=== PATIENT | male | born 1970 | race Caucasian/White ===

== ENCOUNTER → 2023-06-01 11:49 | Outpatient (CLI) | payer OTHER, MEDICAID, SELFPAY ==
--- NOTE | 2023-06-01 11:52 | DI.RAD.S_ITS ---
PROCEDURE: XR KNEE LT 3V INDICATIONS: L knee pain TECHNIQUE: 3 views of the knee were acquired. COMPARISON: None. FINDINGS: Bones: No fractures or dislocations. Mild joint space narrowing. Tricompartmental osteophytosis. No suspicious bony lesions. Soft tissues: Trace joint effusion. No suspicious soft tissue calcifications. IMPRESSION: Moderate left knee DJD. Dictated by: Connor Pyle M.D. on 06/01/2023 at 16:42 Approved by: Connor Pyle M.D. on 06/01/2023 at 16:43
== END ==
PROVIDERS: Family Provider Family Medicine; PCP Family Medicine; Referring Provider Family Medicine; Visit Provider Family Medicine
DX: M25.562 Pain in left knee (principal); M17.12 Unilateral primary osteoarthritis, left knee
CPT/HCPCS: 73562

== ENCOUNTER 2023-06-19 09:00 | Outpatient (RCR) | payer OTHER, MEDICAID, SELFPAY ==
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
--- NOTE | 2023-05-01 09:13 | PT-OP ANOTE ---
NO SHOW- PT called and spoke to pt at 0915 to as pt did not show up to appt. Pt reports that he thought the appt was Monday at 0900. PT confirmed it was today at 0900 and then reminded pt of next appt on 05/02 at 0900. Pt states he will be there.
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
== END 2023-06-20 13:47 | disposition home or self-care (01) ==
LOC: PHYS 09:00
PROVIDERS: Family Provider Family Medicine; PCP Family Medicine; Referring Provider Family Medicine; Visit Provider Family Medicine
DX: M54.9 Dorsalgia, unspecified (principal); G89.29 Other chronic pain; M16.10 Unilateral primary osteoarthritis, unspecified hip; R53.1 Weakness; R27.8 Other lack of coordination
CPT/HCPCS: 97110; 97140; 97161; 97535

== ENCOUNTER → 2023-06-20 08:41 | Outpatient (CLI) | payer OTHER, MEDICAID, SELFPAY ==
--- NOTE | 2023-06-20 08:42 | DI.MRI.S_ITS ---
PROCEDURE: MR HIP LT WO CON INDICATIONS: Left knee pain Decreased range of motion of left k TECHNIQUE: Noncontrast coronal T1 spin echo and STIR through the bony pelvis. Coronal and axial T2 fast spin echo with fat saturation, sagittal T1 spin echo, and oblique axial T2 fast spin echo with fat saturation through the hip. COMPARISON: None. FINDINGS: Image quality: Excellent. Bones and joints: [id number] bilateral hip joint osteoarthritic changes are seen with superior joint space narrowing and subchondral sclerosis slightly worse on the left side. There is no marrow edema. No intraosseous lesions or fractures. No avascular necrosis of the femoral heads. The visualized lower lumbar spine appears normally aligned. Tendons and ligaments: Distal left gluteus medius and minimus tendinosis is seen. The nearby proximal iliotibial band also appears intact. The iliopsoas tendon appears intact, without adjacent bursal fluid collections or evidence for impingement syndrome. Mild tendinosis involving left hamstring tendon origins at ischial tuberosity is also seen. Labrum and cartilage: Thinning of articulating cartilage over left femoral head is seen. There is T2 hyperintense signal and fraying of superior anterior labrum at 12-1 o'clock position suggestive of superior anterior labral tear. The alpha angle of the femur is within normal limits at less than 55 degrees. Soft tissues: Visualized muscles demonstrate normal bulk and internal signal. Quadratus femoris muscle demonstrates no internal edema to suggest ischiofemoral impingement. The proximal sciatic neurovascular bundle appears normal adjacent to the hamstring tendons. No free pelvic fluid. Bladder wall thickness is normal. Genitourinary structures and bowel loops appear normal where visualized. IMPRESSION: 1. Finding is suggestive of superior anterior left hip labral tear at 12 to 1 o'clock position. 2. Mild to moderate bilateral hip joint osteoarthritis slightly worse on the left side. No fracture or dislocation. No evidence of avascular necrosis. 3. Distal left gluteus medius and minimus tendinosis. Mild tendinosis involving left hamstring tendon origins at ischial tuberosity. No other muscle or tendon signal abnormalities. Dictated by: Mark Dillard M.D. on 06/20/2023 at 12:52 Approved by: Mark Dillard M.D. on 06/20/2023 at 12:58
== END ==
PROVIDERS: Family Provider Family Medicine; PCP Family Medicine; Referring Provider Family Medicine; Visit Provider Family Medicine
DX: M16.0 Bilateral primary osteoarthritis of hip (principal); M25.562 Pain in left knee; M25.662 Stiffness of left knee, not elsewhere classified
CPT/HCPCS: 73721

== ENCOUNTER → 2023-07-10 16:22 | Outpatient (CLI) | payer OTHER, MEDICAID, SELFPAY ==
--- NOTE | 2023-07-10 16:23 | DI.MRI.S_ITS ---
PROCEDURE: MR KNEE LT WO CON INDICATIONS: Pain in left knee TECHNIQUE: Noncontrast sagittal PD fast spin echo and T2 fast spin echo with fat saturation, sagittal 3-D FLASH with fat saturation; coronal T1 spin echo and PD fast spin echo with fat saturation, and axial PD fast spin echo with fat saturation through the knee. COMPARISON: None. FINDINGS: Image quality: Excellent. Menisci: The medial meniscus is intact. Truncated appearance involving body and posterior horn of lateral meniscus is seen suggestive of prior partial meniscectomy. No evidence of recurrent tear is seen in lateral meniscal remanent. Cruciate ligaments: The anterior and posterior cruciate ligaments appear intact. Medial structures: The medial collateral ligament appears mildly thickened. Visualized portions of the pes anserinus tendons appear normal. No abnormal bursal fluid. Lateral structures: The lateral collateral ligament, long and short heads of the biceps femoris tendon appear intact. The popliteus tendon appears normal. Iliotibial band appears normal. Anterior structures: Distal quadriceps tendinosis at its superior patellar insertion is seen. The patellar tendon is intact. Patellar alignment is normal. No femoral trochlear dysplasia or ventral trochlear prominence. No edema in the infrapatellar fat pad. Bones and cartilage: No bone marrow contusions or fractures. Juls-ja-gkavcyde tricompartmental osteoarthritis and chondromalacia is seen most notably in lateral femoral tibial compartment. Joint space: There is small to moderate knee joint fluid. There is a tiny popliteal cyst. Normal appearing synovial plicae are incidentally noted. IMPRESSION: 1. Prior partial lateral meniscectomy. No evidence of recurrent tear is seen in lateral meniscal remanent. The medial meniscus is intact. 2. The cruciate ligaments are intact. 3. Low-grade MCL sprain. 4. Distal quadriceps tendinosis. 5. Rtps-gu-bltbtufb tricompartmental osteoarthritis and chondromalacia more notably in lateral femoral tibial compartment. No fracture or dislocation. Small to moderate joint effusion and a small popliteal cyst. No loose bodies. Dictated by: Mark Dillard M.D. on 07/10/2023 at 22:15 Approved by: Mark Dillard M.D. on 07/10/2023 at 22:18
== END ==
PROVIDERS: Family Provider Family Medicine; PCP Family Medicine; Referring Provider Family Medicine; Visit Provider Family Medicine
DX: M17.12 Unilateral primary osteoarthritis, left knee (principal); S83.412A Sprain of medial collateral ligament of left knee, initial encounter; M94.262 Chondromalacia, left knee; M25.562 Pain in left knee; M25.662 Stiffness of left knee, not elsewhere classified
CPT/HCPCS: 73721

== ENCOUNTER 2024-02-29 09:45 | Outpatient (RCR) | payer OTHER, MEDICAID, SELFPAY ==
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
== END 2024-03-07 09:46 | disposition home or self-care (01) ==
LOC: PHYS 09:45
PROVIDERS: Family Provider Family Medicine; PCP Family Medicine; Referring Provider Family Medicine; Visit Provider Student in an Organized Health Care Education/Training Program
DX: M25.552 Pain in left hip (principal); Z47.1 Aftercare following joint replacement surgery; M62.81 Muscle weakness (generalized)
CPT/HCPCS: 97110; 97161

== ENCOUNTER → 2024-08-05 15:41 | Outpatient (CLI) | payer OTHER, SELFPAY ==
[2024-08-05 16:44] LABS: Add Manual Diff / Slide Review NO; Basophils Absolute Auto 0 /uL (0-100); Basophils Percent Auto 0.4 % (0-2); Eosinophils Absolute Auto 200 /uL (0-450); Eosinophils Percent Auto 3.7 % (2-4); Hematocrit 45.5 % (41-53); Hemoglobin 15.5 g/dL (13.5-17.5); Lymphocytes Absolute Auto 1300 /uL (1100-4500); Lymphocytes Percent Auto 22.4 % (25-40); Mean Corpuscular HGB Conc 34.1 % (30-36); Mean Corpuscular Hemoglobin 32.5 PG (26-34); Mean Corpuscular Volume 95.2 fL (80-100); Monocytes Absolute Auto 200 /uL (0-900); Monocytes Percent Auto 3.4 % (3-14); Neutrophils Absolute Auto 4200 /uL (1500-7000); Neutrophils Percent Auto 70.1 % (50-75); Platelet Count 288 X10^3/uL (150-400); Red Blood Cell Count 4.78 X10^6/uL (4.5-5.9); Red Cell Distribution Width 12.6 % (11.6-14.8)
[2024-08-05 17:01] LABS: Lithium 0.8 mmol/L (0.6-1.2)
[2024-08-05 17:09] LABS: Alanine Aminotransferase 23 IU/L (<50); Albumin 4.7 g/dL (3.5-5.0); Alkaline Phosphatase 39 U/L (38-126); Aspartate Aminotransferase 29 IU/L (17-59); BUN Creatinine Ratio 6.7 (6-22); Bilirubin Total 0.5 mg/dL (0.2-1.3); Blood Urea Nitrogen 7 mg/dL (9-20); Calcium 9.9 mg/dL (8.4-10.2); Carbon Dioxide 28 mmol/L (22-32); Chloride 104 mmol/L (98-107); Estimated Glomerular Filt Rate > 60 mL/min (>60); Globulin 2.4 g/dL (1.7-4.1); Glucose 85 mg/dL (70-99); HEMOLYSIS < 15 (0-50); Potassium 4.5 mmol/L (3.4-5.1); Sodium 140 mmol/L (137-145); Total Protein 7.1 g/dL (6.3-8.2)
== END ==
PROVIDERS: Family Provider Family Medicine; PCP Family Medicine; Referring Provider Family Medicine; Visit Provider Family Medicine
DX: F31.9 Bipolar disorder, unspecified (principal); Z79.899 Other long term (current) drug therapy
CPT/HCPCS: 36415; 80053; 80175; 80178; 85025

== ENCOUNTER → 2024-09-02 13:09 | Outpatient (CLI) | payer OTHER, SELFPAY ==
--- NOTE | 2024-09-02 13:11 | DI.RAD.S_ITS ---
PROCEDURE: XR LUMBAR SPINE MIN 4V INDICATIONS: BACK PAIN TECHNIQUE: 5 views of the lumbar spine were acquired, including bilateral oblique views. COMPARISON: [facility], , L-SPINE 2-3 VIEWS, 12/08/2015, 10:27. FINDINGS: Bones: 5 nonrib-bearing vertebrae are present. Rudimentary T12 ribs. L5 shahbaz vertebrae on the right. Convex left scoliosis, centered at L3, progressed from prior. Stable anterior wedging of the L1 vertebral body. Moderate, multilevel degenerative disc disease and diffuse facet arthrosis, progressed from prior. Soft tissues: Overlying bowel gas pattern is normal. No suspicious soft tissue calcifications. Oblique images: No pars defects. IMPRESSION: Progressed moderate degenerative disc disease and diffuse facet arthrosis. Dictated by: Momo Chandler M.D. on 09/02/2024 at 15:19 Approved by: Momo Chandler M.D. on 09/02/2024 at 15:21
== END ==
PROVIDERS: Family Provider Family Medicine; PCP Family Medicine; Referring Provider Physical Medicine & Rehabilitation; Visit Provider Physical Medicine & Rehabilitation
DX: M51.360 Other intervertebral disc degeneration, lumbar region with discogenic back pain only (principal); M47.816 Spondylosis without myelopathy or radiculopathy, lumbar region; G89.29 Other chronic pain
CPT/HCPCS: 72110